=== PATIENT | male | born 1995 | race Asian ===

== ENCOUNTER 2018-12-29 11:38 | Emergency (ER) | payer BC, OTHER ==
[~2018-12-29] VITALS: Ht 167.6 cm; Wt 65.0 kg
[2018-12-29 12:35] VITALS: BP 124/57; PULSE 69; RESP 16; Ht 167.6 cm; Wt 65.0 kg
[2018-12-29] MEDS ORDERED: MED4DP PO (14:51)
[2018-12-29] MEDS ORDERED: BEN25 PO (14:51)
[2018-12-29] MEDS ORDERED: predniSONE 20 MG TAB PO ONE (15:00)
--- NOTE | 2018-12-29 15:31 | ERD ---
ER Documentation Chief Complaint Chief Complaint BILATERAL ARM/HAND BITES WITH REDNESS & SWELLING HPI 23-year-old male presenting with bites to left hand and right upper forearm. Patient states that 2 weeks ago he sustained bug bites and was given antibiotics given there is some swelling with associated streaking. Patient states that the bug bites improved however last night [place]. And swelling and erythema returned. Patient states that he noted some streaking. Patient has been taking antibiotics with no improvement of symptoms. Denies any fevers. Denies any numbness or tingling. States the areas are very pruritic. Denies pain. ROS All systems reviewed and are negative except as per history of present illness. Medications Home Meds Active Scripts Methylprednisolone* (Medrol* DOSE PACK) 4 Mg/Dose-Pack Tab.ds.pk, 4 MG PO . DIRECTED, #2 PACKET Prov:HARSHAL MILTON PA-C 12/29/18 Diphenhydramine Hcl* (Benadryl*) 25 Mg Cap, 25 MG PO Q6, #30 CAP Prov:HARSHAL MILTON PA-C 12/29/18 Allergies Allergies: Coded Allergies: No Known Allergy (Unverified , 12/29/18) PMhx/Soc Medical and Surgical Hx: pt denies Medical Hx, pt denies Surgical Hx Hx Substance Use: Yes (weed used 2 days ago) Hx Tobacco Use: No FmHx Family History: No diabetes, No coronary disease, No other Physical Exam Vitals Vital Signs Date Temp Pulse Resp B/P (MAP) Pulse Ox O2 O2 Flow FiO2 Time Delivery Rate 12/29/18 98.4 69 16 124/57 97 12:35 (79) Physical Exam GENERAL: The patient is well-appearing, well-nourished, in no acute distress CHEST: Clear to auscultation bilaterally. There are no rales, wheezes or rhonchi. HEART: Regular rate and rhythm. No murmurs, clicks, rubs or gallops. EXTREMITIES: Equal pulses bilaterally. There is no peripheral clubbing, cyanosis or edema. No focal swelling or erythema. Full range of motion. Grossly neurovascularly intact. NEUROLOGIC: Alert and oriented. Cranial nerves II through XII intact. Motor strength in all 4 extremities with 5 out of 5 strength. Sensation grossly intact. SKIN: White boogie noted to left hand and right arm. Surrounding erythema and irritation. Questionable streaking boogie noted. Results 24 hrs Current Medications Medications Dose Sig/Bebeto Start Time Status Last (Trade) Ordered Route PRN Stop Time Admin Dose Reason Admin Prednisone 60 mg ONCE ONCE 12/29/18 DC 12/29/18 (Prednisone) PO 15:00 14:53 12/29/18 15:01 Procedures/MDM ER Course: Dr. Falcon came to evaluate patient with me at bedside. We agreed that this did not appear to be a cellulitic infection however look to be reactive to the irritant biting him. Patient was discharged with antihistamine medication as well as steroids. We did not feel there is indication for admission however patient will return within 48 hours for close evaluation under my care. MDM: 23-year-old male presenting with erythema to hands. Patient likely has reactive dermatitis secondary to bug bites. Patient will be treated with new medications and recommended to return in 48 hours for my evaluation. Patient I have low suspicion for lymphatic infection. Patient's vitals are stable and exam is non-concerning. Patient is discharged stricter precautions. All questions answered at discharge Departure Diagnosis: Primary Impression: Bite wound Condition: Stable Patient Instructions: Animal Bite, General Referrals: [facility] YOU HAVE RECEIVED A MEDICAL SCREENING EXAM AND THE RESULTS INDICATE THAT YOU DO NOT HAVE A CONDITION THAT REQUIRES URGENT TREATMENT IN THE EMERGENCY DEPARTMENT. FURTHER EVALUATION AND TREATMENT OF YOUR CONDITION CAN WAIT UNTIL YOU ARE SEEN IN YOUR DOCTORS OFFICE WITHIN THE NEXT 1-2 DAYS. IT IS YOUR RESPONSIBILITY TO MAKE AN APPOINTMENT FOR FOLOW-UP CARE. IF YOU HAVE A PRIMARY DOCTOR --you should call your primary doctor and schedule an appointment IF YOU DO NOT HAVE A PRIMARY DOCTOR YOU CAN CALL OUR PHYSICIAN REFERRAL HOTLINE AT IF YOU CAN NOT AFFORD TO SEE A PHYSICIAN YOU CAN CHOSE FROM THE FOLLOWING [facility] [address] [facility] [address] [facility] [facility] [address] [facility] [address] [facility] [address] [address] [facility] [address] [facility]. [address] Additional Instructions: FOLLOW UP WITH YOUR PRIMARY CARE PHYSICIAN TOMORROW.Return to this facility if you are not improving as expected. HARSHAL MILTON PA-C Dec 29, 2018 15:30
== END 2018-12-29 15:54 | disposition home or self-care (01) ==
LOC: FTE 11:38
DX: S60.562A Insect bite (nonvenomous) of left hand, initial encounter (principal); S40.861A Insect bite (nonvenomous) of right upper arm, initial encounter; W57.XXXA Bitten or stung by nonvenomous insect and other nonvenomous arthropods, initial encounter
CPT/HCPCS: 99283; J7512

== ENCOUNTER 2018-12-31 06:21 | Emergency (ER) | payer SELFPAY ==
[~2018-12-31] VITALS: Ht 172.7 cm; Wt 80.0 kg
[~2018-12-31 06:21] MED LIST: BEN25 PO; MED4DP PO
[2018-12-31 06:27] VITALS: BP 123/77; PULSE 73; RESP 16; Ht 172.7 cm; Wt 80.0 kg
== END 2018-12-31 07:09 | disposition left against medical advice (07) ==
LOC: FTE 06:21
DX: Z53.21 Procedure and treatment not carried out due to patient leaving prior to being seen by health care provider (principal)